=== PATIENT | female | born 1970 | race Caucasian/White ===

== ENCOUNTER → 2022-07-19 | Outpatient (CLI) | payer BC | LOC: M WHC 15:39 | PROVIDERS: ATTEND Student in an Organized Health Care Education/Training Program | DX: N63.15 Unspecified lump in the right breast, overlapping quadrants (principal) ==

== ENCOUNTER → 2023-04-12 | Outpatient (CLI) | payer BC | LOC: M WHC 14:52 | PROVIDERS: ATTEND Internal Medicine Hematology & Oncology | DX: Z85.3 Personal history of malignant neoplasm of breast (principal) ==

== ENCOUNTER → 2024-04-15 | Outpatient (CLI) | payer OTHER | LOC: M WHC 14:27 | PROVIDERS: ATTEND Internal Medicine Hematology & Oncology | DX: Z12.31 Encounter for screening mammogram for malignant neoplasm of breast (principal); R59.0 Localized enlarged lymph nodes; R92.0 Mammographic microcalcification found on diagnostic imaging of breast; G62.9 Polyneuropathy, unspecified; C50.911 Malignant neoplasm of unspecified site of right female breast; R23.8 Other skin changes | CPT/HCPCS: 76882; 77066; G0279 ==